=== PATIENT | female | born 2000 | race Caucasian/White ===

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

== ENCOUNTER 2021-04-29 07:52 | Emergency (ER) | payer OTHER ==
[~2021-04-29] VITALS: Ht 165.1 cm; Wt 56.8 kg
[~2021-04-29 07:52] MED LIST changes: -NOCURR; +TRAZ-252 PO
[2021-04-29 07:56] VITALS: BP 91/55
[2021-04-29] MEDS ORDERED: ACETAMINOPHEN 500 MG TABLET PO ONE (08:45)
[2021-04-29] MEDS ORDERED: IBUPROFEN 600 MG TABLET PO ONE (08:45)
[2021-04-29 09:28] LABS: COVID AG,FIA SOURCE NASOPHARYNGEAL
[2021-04-29 10:09] LABS: APPEARANCE,URINE CLOUDY (CLEAR); GLUCOSE, URINE (UA) NEGATIVE (NEGATIVE); KETONES,URINE 15 mg/dL (NEGATIVE); LEUKOCYTE ESTERASE ,URINE MODERATE (NEGATIVE); NITRATE,URINE POSITIVE (NEGATIVE); OCCULT BLOOD,URINE MODERATE (NEGATIVE); PROTEIN,URINE NEGATIVE (NEGATIVE)
[2021-04-29 10:16] LABS: BILIRUBIN,URINE PRELIM. POSITIVE (NEGATIVE)
[2021-04-29 10:26] LABS: BACTERIA,URINE Few /HPF (None Seen); RBC,URINE 0-2 /HPF (0-2); SQUAMOUS EPITHELIAL CELL,UR Few /LPF (None Seen)
[2021-04-29] MEDS ORDERED: CEPHALEXIN MONOHYDRATE 500 MG CAPSULE PO ONE (10:30)
[2021-04-29] MEDS ORDERED: PHENAZOPYRIDINE HCL 100 MG TABLET PO ONE (10:30)
== END 2021-04-29 12:25 | disposition home or self-care (01) ==
LOC: EMS 07:56
DX: N39.0 Urinary tract infection, site not specified (principal); Z20.822 Contact with and (suspected) exposure to COVID-19
CPT/HCPCS: 81001; 84703; 99284; Z7502; Z7610